=== PATIENT | female | born 1985 | race American Indian/Alaskan Native ===

== ENCOUNTER 2016-10-03 07:17 | Emergency (ER) | payer OTHER ==
[2016-10-03 07:41] VITALS: BP 138/96
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
[2016-10-03] MEDS ORDERED: TORADOL IM ONE (09:18)
--- NOTE | 2016-10-03 09:26 | XRay Report ---
Right foot 2 views: History: Right foot pain. Findings: There is fracture noted of the ungual tuft of distal phalanx of great toe. No periosteal reaction the metatarsals and toes. Articular surfaces appears normal. Impression: Fracture of ungual tuft distal phalanx great toe.
--- NOTE | 2016-10-03 10:01 | Cat Scan Report ---
CT CERVICAL SPINE WITHOUT CONTRAST INDICATION: Neck pain and pressure. COMPARISON: None similar. FINDINGS: Noncontrast axial, sagittal and coronal CT reconstructions of the cervical spine demonstrate normal visualized intracranial appearance. Assessment of the spinal canal from C7-T1 inferiorly also compromised due to artifact from shoulder soft tissues. Clear included sinuses and mastoid air cells. Symmetric occipital condyles. Normal anterior and posterior arches of C1. Intact craniocervical articulation with normal predental space, prevertebral soft tissues, vertebral body stature, disc heights and posterior elements. Straightening/slight reversal of usual cervical lordosis with the apex at C4-C5 may be noted, possibly positional versus spasm. No large disc protrusion at any level suspected. Normal included thyroid. Clear visualized lung apices. Anemia not entirely excluded. CONCLUSION: No acute cervical spine CT abnormality with few incidental findings, as above. Please correlate. Thank you for the opportunity to participate in this patient's care.
== END 2016-10-03 10:20 | disposition home or self-care (01) ==
LOC: ED 07:17
DX: S92.424A Nondisplaced fracture of distal phalanx of right great toe, initial encounter for closed fracture (principal); F17.200 Nicotine dependence, unspecified, uncomplicated; V89.2XXA Person injured in unspecified motor-vehicle accident, traffic, initial encounter; Y93.89 Activity, other specified; Y92.89 Other specified places as the place of occurrence of the external cause; Y99.8 Other external cause status
CPT/HCPCS: 72125; 73620; 81025; 96372; 99284; J1885